=== PATIENT | female | born 1995 | race Hispanic/Latino ===

== ENCOUNTER 2023-11-10 15:47 | Emergency (ER) | payer MEDICAID ==
[~2023-11-10] VITALS: Ht 152.4 cm; Wt 58.5 kg
[2023-11-10 16:10] LABS: BASOPHILS # (AUTO) 0.05 K/uL (0.00-0.20); BASOPHILS % (AUTO) 0.5 % (0.0-5.0); EOSINOPHILS # (AUTO) 0.14 K/uL (0.00-0.70); EOSINOPHILS % (AUTO) 1.4 % (0.0-8.0); HEMATOCRIT 40.6 % (36-48); IMMATURE GRANULOCYTE ABSOLUTE 0.02 K/uL (0-1); LYMPHOCYTES % (AUTO) 19.4 % (21.0-51.0); MEAN CORPUSCULAR HEMOGLOBIN 29.8 pg (27.0-33.0); MEAN CORPUSCULAR HGB CONC 33.7 g/dL (32.0-36.0); MEAN CORPUSCULAR VOLUME 88.5 fL (79-99); MONOCYTES # (AUTO) 0.5 K/uL (0.1-1.0); MONOCYTES % (AUTO) 4.4 % (3.0-13.0); NEUTROPHILS # (AUTO) 7.5 K/uL (1.8-7.7); NEUTROPHILS % (AUTO) 74.1 % (40.0-77.0); PLATELET COUNT (AUTO) 211 K/uL (130-400); RED BLOOD CELL COUNT(AUTO) 4.59 MIL/uL (4.00-5.50); RED CELL DISTRIBUTION WIDTH 12.2 % (11.0-15.5); WHITE BLOOD COUNT (AUTO) 10.2 K/uL (4.8-10.8)
[2023-11-10 16:26] LABS: CREATININE 0.6 mg/dL (0.5-1.0); POTASSIUM 3.7 mmol/L (3.5-5.1)
[2023-11-10 16:32] LABS: PROTHROMBIN TIME 10.8 SEC (9.6-11.6)
[2023-11-10 16:33] LABS: PARTIAL THROMBOPLASTIN TIME 28.8 SEC (26.3-35.5)
[2023-11-10] MEDS: FAMOTIDINE 20MG VIAL IV ONE (18:13)
[2023-11-10] MEDS: ONDANSETRON 4MG INJ IVP ONE (18:21)
[2023-11-10] MEDS: KETOROLAC 15MG/ML VIAL (15MG/ML) IV ONE (18:21)
[2023-11-10 19:02] VITALS: BP 114/62; PULSE 72; RESP 18; O2SAT 98
== END 2023-11-10 19:19 | disposition home or self-care (01) ==
LOC: EDH 15:47
DX: R07.89 Other chest pain (principal); I10 Essential (primary) hypertension; F41.9 Anxiety disorder, unspecified; F32.A Depression, unspecified; R10.2 Pelvic and perineal pain
CPT/HCPCS: 99285; 96374; 71045; 84484; 80048; 84702; 85025; 85610; 85730; 36415; 93005; S0028; J1885; J2405; J3490